=== PATIENT | male | born 1955 | race Caucasian/White ===

== ENCOUNTER 2022-08-09 07:59 | Day surgery (SDC) | payer MEDICARE ==
[2022-08-09] MEDS ORDERED: Sodium Chloride 0.9% 10 ML Syringe FLUSH PRN (08:00)
[2022-08-09] MEDS ORDERED: Lactated Ringers 1,000 ML IV SCH (08:00)
[2022-08-09] MEDS ORDERED: Propofol 200 MG/20 ML SDV IV ONE (08:00)
[2022-08-09] MEDS ORDERED: Simethicone Drops 40 MG/0.6 ML 30 ML Bottle ONE (10:00)
== END 2022-08-09 11:00 | disposition home or self-care (01) ==
LOC: FB.SDS 07:59
PROVIDERS: ATTEND Surgery
DX: Z12.11 Encounter for screening for malignant neoplasm of colon (principal); K57.30 Diverticulosis of large intestine without perforation or abscess without bleeding; K40.90 Unilateral inguinal hernia, without obstruction or gangrene, not specified as recurrent; E66.9 Obesity, unspecified; L57.0 Actinic keratosis; E78.5 Hyperlipidemia, unspecified; Z79.899 Other long term (current) drug therapy; Z79.82 Long term (current) use of aspirin; Z98.890 Other specified postprocedural states; Z68.31 Body mass index [BMI] 31.0-31.9, adult
CPT/HCPCS: 00812; A9270-GY; J2704; J7120

== ENCOUNTER 2023-07-03 06:18 | Day surgery (SDC) | payer BC, MEDICARE ==
[~2023-07-03 06:18] MED LIST: Sodium Chloride 0.9% 10 ML Syringe FLUSH PRN
[2023-07-03] MEDS ORDERED: Midazolam 1 MG/ML 2 ML SDV IV ONE (06:19)
[2023-07-03] MEDS ORDERED: Propofol 200 MG/20 ML SDV IV ONE (06:19)
[2023-07-03] MEDS ORDERED: Rocuronium 100 MG/10 ML MDV IV ONE (06:19)
[2023-07-03] MEDS ORDERED: Ketorolac 30 MG/ML SDV IVPUSH ONE (06:19)
[2023-07-03] MEDS ORDERED: Lactated Ringers 1,000 ML IV ONE (06:19)
[2023-07-03] MEDS ORDERED: Ondansetron 4 MG/2 ML SDV IVPUSH ONE (06:19)
[2023-07-03] MEDS ORDERED: Sugammadex Sodium 200 MG/2 ML VIAL IV ONE (06:19)
[2023-07-03] MEDS ORDERED: fentaNYL 100 MCG/2 ML SDV IV ONE (06:19)
[2023-07-03] MEDS ORDERED: ceFAZolin 2 GM Vial IVPUSH ONE (07:00)
[2023-07-03] MEDS: Lactated Ringers 1,000 ML IV SCH (07:05)
[2023-07-03] MEDS: ceFAZolin 2 GM Vial IVPUSH ONE (09:20)
[2023-07-03] MEDS: Bupivacaine 0.5% 30 ML SDV INJECT ONE (09:42)
[2023-07-03] MEDS: Lidocaine 1% with EPINEPHrine 1:100,000 20 ML MDV INJECT ONE (09:42)
== END 2023-07-03 12:07 | disposition home or self-care (01) ==
LOC: FB.SDS 06:18
PROVIDERS: ATTEND Surgery
DX: K40.90 Unilateral inguinal hernia, without obstruction or gangrene, not specified as recurrent (principal); D17.6 Benign lipomatous neoplasm of spermatic cord; N40.0 Benign prostatic hyperplasia without lower urinary tract symptoms; E78.00 Pure hypercholesterolemia, unspecified; E66.9 Obesity, unspecified; Z68.31 Body mass index [BMI] 31.0-31.9, adult; Z87.891 Personal history of nicotine dependence; Z79.899 Other long term (current) drug therapy; Z79.82 Long term (current) use of aspirin
CPT/HCPCS: C1781; J0665; J0690; J1885; J2250; J2405; J2704; J3010; J3490; J7120